=== PATIENT | female | born 1975 | race Caucasian/White ===

== ENCOUNTER 2021-11-06 19:22 | Emergency (ER) | payer SELFPAY ==
[~2021-11-06] VITALS: Ht 162.6 cm; Wt 56.7 kg
[2021-11-06 20:24] VITALS: BP 156/94
[2021-11-06] MEDS ORDERED: HYDROCODONE/APAP 5/325MG TABLET ONE (21:12)
[2021-11-06] MEDS: HYDROCODONE/APAP 5/325MG TABLET PO ONE (21:15)
[2021-11-06] MEDS ORDERED: TRAM50TA2 PO (21:15)
[2021-11-06] MEDS ORDERED: IBUP-1955 PO (21:15)
== END 2021-11-06 22:01 | disposition home or self-care (01) ==
LOC: ER 19:26
DX: M25.512 Pain in left shoulder (principal); V79.40XA Driver of bus injured in collision with unspecified motor vehicles in traffic accident, initial encounter; Y93.89 Activity, other specified; Y92.410 Unspecified street and highway as the place of occurrence of the external cause; Y99.8 Other external cause status
CPT/HCPCS: 73030-TC